=== PATIENT | female | born 1970 | race Two or more races ===

== ENCOUNTER 2023-02-22 18:33 | Emergency (ER) | payer MEDICAID ==
[~2023-02-22] VITALS: Ht 152.4 cm; Wt 66.5 kg
[2023-02-22 18:44] VITALS: BP 122/68; RESP 16; O2SAT 99
[2023-02-22] MEDS: GABAPENTIN 300 MG CAP PO ONE ×2 (20:30→20:33)
[2023-02-22 22:07] VITALS: PULSE 66
== END 2023-02-22 23:35 | disposition home or self-care (01) ==
LOC: ER 18:33
DX: M54.12 Radiculopathy, cervical region (principal); R20.0 Anesthesia of skin
CPT/HCPCS: 72040; 93005

== ENCOUNTER 2024-04-24 19:30 | Emergency (ER) | payer MEDICAID ==
[~2024-04-24] VITALS: Ht 152.4 cm; Wt 70.2 kg
[2024-04-24 23:51] VITALS: BP 123/85; PULSE 80; RESP 19; TEMP 97.8; O2SAT 98
--- NOTE | 2024-04-24 23:57 | ED.PDOC ---
Back pain HPI HPI Comments This is a 53-year-old female presents to the ED chief complaint lump to right forearm. Patient states yesterday she developed a tender hard lump on her proximal right forearm. She states she took an 81 mg baby aspirin in the lump went away shortly after proximally 1 hour. Patient presents today with concern that it was possibly a blood clot. He reported no redness no injury to the site denies any past medical history or risk factors. Denies Fever chills. 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 Family History Family History: Reviewed,noncontributory to illness, No family hx of Cancer, No family hx of DM, No family hx of Heart solis, No family hx of HTN, No family hx ofKidney solis, No family hx of Liver solis, No family hx of Lung solis, No family hx of Stroke Social History Smoker: Non-Smoker Alcohol: Denies ETOH Use Drugs: Denies Drug Use Lives In: Home Constitutional: denies: chills, diaphoresis, fatigue, fever, malaise, sweats, weakness, others EENTM: denies: blurred vision, double vision, ear bleeding, ear discharge, ear drainage, ear pain, ear ringing, eye pain, eye redness, hearing loss, mouth pain, mouth swelling, nasal discharge, nose bleeding, nose congestion, nose pain, photophobia, tearing, throat pain, throat swelling, voice changes, others Respiratory: denies: cough, hemoptysis, orthopnea, SOB at rest, shortness of breath, SOB with excertion, stridor, wheezing, others Cardiovascular: denies: chest pain, dizzy spells, diaphoresis, Dyspnea on exertion, edema, irregular heart beat, left arm pain, lightheadedness, palpitations, PND, syncope, others Gastrointestinal: denies: abdomen distended, abdominal pain, blood streaked bowels, constipated, diarrhea, dysphagia, difficulty swallowing, hematemesis, melena, nausea, poor appetite, poor fluid intake, rectal bleeding, rectal pain, vomiting, others Genitourinary: denies: abnormal vagina bleeding, burning, dyspareunia, dysuria, flank pain, frequency, hematuria, incontinence, pain, , vagina dischar ge, urgency, others Neurological: denies: dizziness, fainting, headache, left sided numbness, left sided weakness, numbness, paresthesia, pre-existing deficit, right sided numbness, right sided weakness, seizure, speech problems, tingling, tremors, weakness, others Musculoskeletal: denies: back pain, gout, joint pain, joint swelling, muscle pain, muscle stiffness, neck pain, others Integumetry: reports: lumps (Right posterior proximal forearm); denies: bruises, change in color, change in hair/nails, dryness, laceration, lesions, rash, wounds, others Allergic/Immunocompromised: denies: Difficulty Healing, Frequent Infections, Hives, Itching, others Hematologic/Lymphatic: denies: anemia, blood clots, easy bleeding, easy bruising, swollen glands, others Endocrine: denies: excessive hunger, excessive sweating, excessive thirst, excessive urination, flushing, intolerance to cold, intolerance to heat, unexplained weight gain, unexplained weight loss, others Psychiatric: denies: anxiety, bipolar disorder, depression, hopeless, panic disorder, schizophrenia, sleepless, suicidal, others Physical Exam General Appearance: No Apparent Distress, Normal HEENT: Pharynx Normal Neck: Full Range of Motion, Non-Tender Respiratory: Lungs Clear, No Respiratory Distress, Normal Breath Sounds Cardiovascular: No Edema, No JVD, No Murmur, No Gallop, Normal Peripheral Pu lses, Regular Rate/Rhythm Breast Exam: Deferred Gastrointestinal: No Organomegaly, Non Tender, No Pulsatile Mass, Normal Bowel Sounds, Soft Genitalia: Deferred Pelvic: Deferred Rectal: Deferred Extremities: Normal capillary refill, Normal inspection, Normal range of motion, Non-tender, No pedal edema Musculoskeletal : Apperance: Normal Neurologic: Alert, wildlife biology technician II-XII nml as Tested, No Motor Deficits, Normal Affect, Normal Mood, No Sensory Deficits Cerebellar Function: Normal Reflexes: Normal Skin: Dry, Normal Color, Warm Lymphatic: No Adenopathy Was a procedure done? Was a procedure done?: No Back Pain Differential Dx Differential Diagnosis: Musculoskeletal Pain, Strain X-Ray, Labs, Meds, VS Vital Signs Date Time Temp Pulse Resp B/P (MAP) Pulse Ox O2 Delivery O2 Flow Rate FiO2 04/24/24 23:51 97.8 80 19 123/85 (98) 98 97.8 04/24/24 23:51 80 19 98 Room Air 04/24/24 19:43 97.9 77 18 110/72 (85) 100 X-Ray, Labs, Meds, VS Comment Physical exam benign no noted swelling redness or pain at the site of concern. Likely a muscle spasm which resolved with an anti-inflammatory. Without an angled risk factors. Your shirt patient. Advised patient to follow up with her PCP for yearly physical and have baseline lab work done. Refill patient's aspirin she takes as needed. Advised on ER return precautions patient indicated understanding and agrees with discharge plan of care Time of 1ST Reevaluation: 23:56 Reevaluation 1ST: Improved Patient Education/Counseling: Diagnosis, Treatment, Prognosis, Need For Follow Up Family Education/Counseling: Diagnosis, Treatment, Prognosis, Need For Follow Up Departure 1 Departure Time of Disposition: 23:56 Impression: Primary Impression: Muscle spasm Disposition: 01 HOME / SELF CARE / HOMELESS Condition: Stable e-Prescriptions Aspirin (Aspirin Adult Low Dose) 81 Mg Tab 81 MG PO DAILY PRN for 30 Days, #30 TAB Prov: CARISSA DE JESUS 04/25/24 Discharged With: Self Critical Care Note Critical Care Time?: No Stability Stability form required: CARISSA Peña Apr 24, 2024 23:57
[2024-04-25] MEDS ORDERED: ASPI-628 PO (00:05)
== END 2024-04-25 00:18 | disposition home or self-care (01) ==
LOC: ER 19:30
DX: M62.838 Other muscle spasm (principal); R22.31 Localized swelling, mass and lump, right upper limb

== ENCOUNTER 2024-11-03 16:19 | Emergency (ER) | payer MEDICAID ==
[~2024-11-03] VITALS: Ht 152.4 cm; Wt 71.5 kg
--- NOTE | 2024-11-03 16:52 | ED.PDOC ---
Musculoskeletal HPI Comments 54 year old F presents to the ER w/ mother and w/ no prior MHx w/ a c.c of atraumatic diffuse LUE pain x 1 day. Onset occurred yesterday at home. Pain rated 3/10 pain & worsens at night. Denies any other aggravating factor. Denies fevers chills night sweats nausea vomiting redness around the shoulder Denies previous surgeries to the shoulder or significant injury Numbness/tingling down the arm Denies changes, shortness of breath Time Seen by MD: 16:30 Primary Care Provider: yolanda Reviewed Notes: Nurses Notes, Medications, Allergies Allergies: Coded Allergies: NO KNOWN ALLERGIES (Unverified , 02/22/23) Home Meds Active Scripts Sulfamethoxazole W/Trimethopri (Bactrim Ds Tablet) 1 Tab Tb, 1 TAB PO BID for 7 Days, #14 TAB 0 Refills Prov:ZEN COOLEY 11/03/24 Acetaminophen (Acetaminophen) 500 Mg Tab, 500 MG PO Q4HPRN, #30 TAB 0 Refills Prov:ZEN COOLEY 11/03/24 Information Source: Patient Mode of Arrival: Ambulatory Location: Left Extremity Location: Arm, Shoulder Timing: Hours Prehospital treatment: None Severity: Moderate Able to Move Extremity: Yes Bear Weight: Fully Pain: Mild Hand Dominance: Right Mechanism: Spontaneous Circumstances: Unknown Onset of Symptoms: Spontaneous Symptoms: Pain DVT Risk Factors: NONE Last Tetanus: Unknown Associated signs and symptoms: Shoulder pain, Arm pain Past Medical History PAST MEDICAL HISTORY: Denies Surgical History: Denies all surgeries ANODE 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 Pertinent ANODE BUILDER History Family History Family History: Reviewed,noncontributory to illness, No family hx of Cancer, No family hx of DM, No family hx of Heart solis, No family hx of HTN, No family hx ofKidney solis, No family hx of Liver solis, No family hx of Lung solis, No family hx of Stroke Social History Smoker: Non-Smoker Alcohol: Denies ETOH Use Drugs: Denies Drug Use Lives In: Home Constitutional: denies: chills, diaphoresis, fatigue, fever, malaise, sweats, weakness, others EENTM: denies: blurred vision, double vision, ear bleeding, ear discharge, ear drainage, ear pain, ear ringing, eye pain, eye redness, hearing loss, mouth pain, mouth swelling, nasal discharge, nose bleeding, nose congestion, nose pain, photophobia, tearing, throat pain, throat swelling, voice changes, others Respiratory: denies: cough, hemoptysis, orthopnea, SOB at rest, shortness of breath, SOB with excertion, stridor, wheezing, others Cardiovascular: denies: chest pain, dizzy spells, diaphoresis, Dyspnea on exertion, edema, irregular heart beat, left arm pain, lightheadedness, palpitations, PND, syncope, others Gastrointestinal: denies: abdomen distended, abdominal pain, blood streaked bowels, constipated, diarrhea, dysphagia, difficulty swallowing, hematemesis, melena, nausea, poor appetite, poor fluid intake, rectal bleeding, rectal pain, vomiting, others Genitourinary: denies: abnormal vagina bleeding, burning, dyspareunia, dysuria, flank pain, frequency, hematuria, incontinence, pain, , vagina discharge, urgency, others Neurological: denies: dizziness, fainting, headache, left sided numbness, left sided weakness, numbness, paresthesia, pre-existing deficit, right sided numbness, right sided weakness, seizure, speech problems, tingling, tremors, weakness, others Musculoskeletal: denies: back pain, gout, joint pain, joint swelling, muscle pain, muscle stiffness, neck pain, others Integumetry: denies: bruises, change in color, change in hair/nails, dryness, laceration, lesions, lumps, rash, wounds, others Allergic/Immunocompromised: denies: Difficulty Healing, Frequent Infections, Hives, Itching, others Hematologic/Lymphatic: denies: anemia, blood clots, easy bleeding, easy bruising, swollen glands, others Endocrine: denies: excessive hunger, excessive sweating, excessive thirst, excessive urination, flushing, intolerance to cold, intolerance to heat, unexplained weight gain, unexplained weight loss, others Psychiatric: denies: anxiety, bipolar disorder, depression, hopeless, panic disorder, schizophrenia, sleepless, suicidal, others All Other Systems: Reviewed and Negative Physical Exam General Appearance: No Apparent Distress, Normal HEENT: Normal ENT Inspection, Pharynx Normal, TMs Normal Neck: Full Range of Motion, Non-Tender, Normal, Normal Inspection Respiratory: Chest Non-Tender, Lungs Clear, No Accessory Muscle Use, No Re spiratory Distress, Normal Breath Sounds Cardiovascular: No Murmur, No Gallop, Regular Rate/Rhythm Breast Exam: Deferred Gastrointestinal: No Organomegaly, Non Tender, No Pulsatile Mass, Normal Bowel Sounds, Soft Genitalia: Deferred Pelvic: Deferred Rectal: Deferred Extremities: No calf tenderness, Normal capillary refill, Normal inspection, Normal range of motion, Non-tender, No pedal edema Musculoskeletal : Apperance: Normal Neurologic: Alert, school examiner II-XII nml as Tested, No Motor Deficits, Normal Affect, Normal Mood, No Sensory Deficits Cerebellar Function: Normal Reflexes: Normal Skin: Dry, Normal Color, Warm Lymphatic: No Adenopathy Was a procedure done? Was a procedure done?: No Differential Diagnosis EXT Differential Diagnosis: Other X-Ray, Labs, Meds, VS Vital Signs Date Time Temp Pulse Resp B/P (MAP) Pulse Ox O2 Delivery O2 Flow Rate FiO2 11/03/24 22:44 97.6 63 15 107/75 (86) 97 97.6 11/03/24 22:44 Room Air* 0 21 11/03/24 16:32 97.6 77 21 125/66 (85) 98 97.6 Lab Test 11/03/24 18:10 11/03/24 17:05 11/03/24 16:43 Range/Units Troponin I High Sensitivity 3 L < 3 L </=34 ng/L White Blood Count 6.7 4.4-10.8 10^3/uL Red Blood Count 4.57 4.0-5.20 10^6/uL Hemoglobin 13.5 12.2-16.2 g/dL Hematocrit 40.1 36.0-46.0 % Mean Corpuscular Volume 87.7 80.0-100.0 fL Mean Corpuscular Hemoglobin 29.6 28.0-32.0 pg Mean Corpuscular Hemoglobin Concent 33.7 32.0-36.0 g/dL Red Cell Distribution Width 14.0 11.8-14.3 % Platelet Count 205 140-450 10^3/uL Mean Platelet Volume 9.5 6.9-10.8 fL Neutrophils (%) (Auto) 70.1 37.0-80.0 % Lymphocytes (%) (Auto) 21.5 10.0-50.0 % Monocytes (%) (Auto) 7.5 0.0-12.0 % Eosinophils (%) (Auto) 0.6 0.0-7.0 % Basophils (%) (Auto) 0.3 0.0-2.0 % Neutrophils # (Auto) 4.7 1.6-8.6 10 ^3/uL Lymphocytes # (Auto) 1.4 0.4-5.4 10 ^3/uL Monocytes # (Auto) 0.5 0-1.3 10 ^3/uL Eosinophils # (Auto) 0 0-0.8 10 ^3/uL Basophils # (Auto) 0 0-0.2 10 ^3/uL Nucleated Red Blood Cells 0.0 % Sodium Level 141 136-145 mmol/L Potassium Level 4.2 3.5-5.1 mmol/L Chloride Level 104 98-107 mmol/L Carbon Dioxide Level 29 20-31 mmol/L Anion Gap 8 5-15 Blood Urea Nitrogen 17 9-23 mg/dL Creatinine 0.71 0.550-1.02 mg/dL Glomerular Filtration Rate Calc 100 >90 mL/min BUN/Creatinine Ratio 23.9 H 10.0-20.0 Serum Glucose 89 74-106 mg/dL Calcium Level 9.7 8.7-10.4 mg/dL Urine Color Yellow Yellow Urine Clarity Clear Clear Urine pH 6.0 5.0-9.0 Urine Specific [place] 1.029 1.001-1.035 Urine Protein Negative Negative Urine Ketones Negative Negative Urine Blood Negative Negative /uL Urine Nitrite Negative Negative Urine Bilirubin Negative Negative Urine Urobilinogen Normal Negative mg/dL Urine Leukocyte Esterase 2+ Negative /uL Urine RBC <1 0 - 4 /hpf Urine Microscopic WBC 7 H 0-5 /HPF Urine Squamous Epithelial Cells Few <5 /hpf Urine Bacteria None seen None Seen /hpf Urine Mucus Few None Seen Urine Glucose Normal Normal mg/dL PATIENT: LISA SOLORIO DEEBACCT: [id number]: [id number] : 1970 LOC: ER ROOM / BED: / AGE / SEX: 54 / F ADM STATUS: REG ER SERVICE [id number] ORDERING PHYSICIAN: FIDELINA VALADEZ NP PROCEDURE(s): LUDVT - LT Upper DVT REASON: r/o dvt ORDER NUMBER(s): [id number], ACCESSION NUMBER(s): [id number] Procedure: US LT Upper DVT Study Date and Requested Time: 11/03/2024 05:18 PM History: r/o dvt Comparison: None Technique: Multiple high resolution grayscale images with and without compression obtained of the left upper extremity veins, including the internal jugular, subclavian, axillary, brachial, radial, and ulnar veins. Augmentation performed as indicated. Color and spectral doppler flow images obtained as indicated. Findings: No visible intraluminal venous thrombus. No evidence of incompressibility or abnormal color or spectral Doppler flow visualized in the left upper extremity veins including the internal jugular, subclavian, axillary, brachial, radial, and ulnar veins. Impression: No sonographic evidence of left upper extremity deep venous thrombosis. X-Ray, Labs, Meds, VS Comment 54 year old F presents to the ER w/ mother and w/ no prior MHx w/ a c.c of atraumatic diffuse LUE pain x 1 day. Patient arrives alert and oriented, ABC's intact, afebrile, vital signs stable, saturating well in room air Peripheral IV insertion+ labs were ordered. CBC was ordered to exclude anemia, blood loss, or infection. BMP was ordered to exclude electrolyte abnormalities, renal failure, dehydration, hyperglycemia Troponin and BNP were ordered to rule out myocardial infarction, or congestive heart failure. Urinalysis was ordered to rule out UTI or hematuria. Diagnostic imaging ordered by me and results interpreted by radiology :US No sonographic evidence of left upper extremity deep venous thrombosis. Disposition: Discharge. Strict return precautions discussed with the patient with full understanding. Supportive care advised (rest, ice, heat, NSAIDs, stretching exercises) Massage muscles with cold pack or ice for 20 minutes 4 times per day. Usually most useful if there is swelling during the first 48 hours Heating pad on the most painful area for 20 minutes to relieve muscle spasm Sleep and the most comfortable sleeping position (usually on the side with knees bent) Light stretching, no strenuous activity, avoid frequent bending, avoid carrying heavy objects Discussed possible benefits of yoga and acupuncture Patient is stable for discharge at this time. External notes reviewed. Test results and diagnostic imaging interpreted. All diagnostic findings, discharge care, education and instructions provided Follow-up with PCP in 2 to 3 days Patient verbalized understanding and agreed to treatment plan Vital signs stable, afebrile, no acute distress noted Patient ambulatory with strong steady gait Advised to return precautions for any new or worsening symptoms, return to ER immediately for re-evaluation Patient is aware that the purpose of this visit was for an acute medical emergency requiring emergent stabilization. Chronic conditions, including malignancies have not been ruled out. Patient is instructed to follow up with PCP as directed and discharge instructions for continued care and workup. If unable to arrange follow-up, patient is to return to the emergency department for reassessment. Patient (parent or legal guardian if applicable) was given verbal and written discharge instructions and acknowledges understanding. Additional MDM Review of External, Non-ED records: External records reviewed. Discussion with independent historian (EMS, family) history obtained from the patient/parents (if applicable) at bedside Chronic conditions affecting care: None Social determinants of health affecting care: None Consideration of admission (observation or admission): I considered escalation of care to admission for this patient, however given the reassuring workup, the patient is safe for outpatient management. Discussion with the Radiology: No Tests considered but not performed: Prescription medication considered but not given: Time of 1ST Reevaluation: 17:00 Reevaluation 1ST: Unchanged Time of 2ND Reevaluation: 17:51 Reevaluation 2ND: Improved Patient Education/Counseling: Diagnosis, Treatment, Prognosis Family Education/Counseling: No Family Present Departure 1 Departure Time of Disposition: 18:42 Impression: Primary Impression: Left arm pain Additional Impression: UTI (urinary tract infection) Qualified Codes: N30.00 - Acute cystitis without hematuria Disposition: HOME / SELF CARE / HOMELESS Condition: Stable e-Prescriptions Sulfamethoxazole W/Trimethopri (Bactrim Ds Tablet) 1 Tab Tb 1 TAB PO BID for 7 Days, #14 TAB 0 Refills Prov: ZEN COOLEY 11/03/24 Acetaminophen (Acetaminophen) 500 Mg Tab 500 MG PO Q4HPRN, #30 TAB 0 Refills Prov: ZEN COOLEY 11/03/24 Critical Care Note Critical Care Time?: No Stability Stability form required: No Heart Score Heart Score: Heart Score Response (Comments) Value History N/A 0 EKG N/A 0 Age N/A 0 Risk Factors N/A 0 Troponin N/A 0 Total 0 I personally scribed for FIDELINA VALADEZ NP ([email or web address]) on 11/03/24 at 16:51. Electronically submitted by Deonte Patel ([email or web address]). FIDELINA VALADEZ NP Nov 03, 2024 16:51 ZEN COOLEY Nov 03, 2024 18:46
[2024-11-03 17:33] LABS: Chloride 104 mmol/L (98-107); Potassium 4.2 mmol/L (3.5-5.1); Sodium 141 mmol/L (136-145)
[2024-11-03 17:34] LABS: Anion Gap 8 (5-15); Calcium 9.7 mg/dL (8.7-10.4); Carbon Dioxide 29 mmol/L (20-31)
[2024-11-03 17:38] LABS: Hematocrit 40.1 % (36.0-46.0); Hemoglobin 13.5 g/dL (12.2-16.2); Mean Corpuscular Hemoglobin 29.6 pg (28.0-32.0); Mean Corpuscular Volume 87.7 fL (80.0-100.0); Nucleated Red Blood Cells % 0.0 %
[2024-11-03 17:39] LABS: BUN/Creatinine Ratio 23.9 (10.0-20.0); Blood Urea Nitrogen 17 mg/dL (9-23); Glucose 89 mg/dL (74-106)
--- NOTE | 2024-11-03 17:51 | DVH ---
Procedure: US LT Upper DVT Study Date and Requested Time: 11/03/2024 05:18 PM History: r/o dvt Comparison: None Technique: Multiple high resolution grayscale images with and without compression obtained of the lef t upper extremity veins, including the internal jugular, subclavian, axillary, brachial, radial, and ulnar veins. Augmentation performed as indicated. Color and spectral doppler flow images obtained as indicated. Findings: No visible intraluminal venous thrombus. No evidence of incompressibility or abnormal color or spectr al Doppler flow visualized in the left upper extremity veins including the internal jugular, subclavi an, axillary, brachial, radial, and ulnar veins. Impression: No sonographic evidence of left upper extremity deep venous thrombosis.
[2024-11-03 18:10] LABS: Urine Protein, UAD Negative (Negative)
[2024-11-03] MEDS ORDERED: ACET500T58 PO (18:44)
[2024-11-03] MEDS ORDERED: BACDST PO (18:44)
[2024-11-03 22:44] VITALS: BP 107/75; PULSE 63; RESP 15; TEMP 97.6; O2SAT 97
== END 2024-11-03 22:48 | disposition home or self-care (01) ==
LOC: ER 16:19
DX: N39.0 Urinary tract infection, site not specified (principal); M79.622 Pain in left upper arm; Z79.899 Other long term (current) drug therapy
CPT/HCPCS: 36415; 80048; 81001; 84484; 85025; 93971